=== PATIENT | female | born 1960 | race Caucasian/White ===

== ENCOUNTER → 2019-11-28 08:08 | Outpatient (CLI) | payer OTHER, SELFPAY ==
--- NOTE | 2019-11-28 08:19 | BD_ITS ---
STUDY: DUAL ENERGY X-RAY ABSORPTIOMETRY / DXA REASON FOR EXAM: Female, 58 years old. 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 COMPARISON: Comparison is made with prior study dated 07/14/2001. FINDINGS: Lumbar Spine (L1-L4): g/cm2 (1.019) / T-score (-1.3) / Z-score (-0.2) Findings are suggestive of osteopenia with a low fracture risk. Left Femur Total: g/cm2 (0.843) / T-score (-1.3) / Z-score (-0.4) Left Femoral Neck: g/cm2 (0.837) / T-score (-1.4) / Z-score (-0.2) Right Femur Total: g/cm2 (0.838) / T-score (-1.3) / Z-score (-0.4) Right Femoral Neck: g/cm2 (0.789) / T-score (-1.8) / Z-score (-0.6) The T-Scores on the most recent prior examination were: Lumbar Spine (L1-L4): There has been worsening of bone density since the previous examination. Left Femur Total: which represents an improvement of 5.9%. Right Femur Total: which represents a worsening of . BD/Dexa Bone Density Study IMPRESSION: The patient is considered osteopenic as outlined below according to World Loco Organization (WHO) criteria with a moderate fracture risk. There has been worsening of bone density since the previous examination. Reference Information: The T-score is the number of standard deviations above or below the standard which is normal for young adults at their peak bone mineral density. The World Health Organization (WHO) interprets the T-scores as follows: Above -1 Normal bone density Between -1 and -2.5 Osteopenia Equal to / or below -2.5 Osteoporosis As a practical clinical guideline, osteopenia may be graded as follows: Mild -1 through -1.5 Moderate -1.6 through -2.0 Severe -2.1 through -2.4 The Z-score is the number of standard deviations above or below age-matched controls. A Z-score of less than -1.5 would be considered abnormal. References: 1. NIH Osteoporosis and Related Bone Diseases http://www.osteo.org 2. International Society for Clinical Densitometry http://www.iscd.org 3. National Osteoporosis Foundation http://www.nof.org Electronically Signed: Moise Muir, at 9:33 EDT , Service support ,
== END ==
PROVIDERS: PCP Family Medicine; Referring Provider Family Medicine; Visit Provider Family Medicine
DX: M85.80 Other specified disorders of bone density and structure, unspecified site (principal); Z79.51 Long term (current) use of inhaled steroids
CPT/HCPCS: 77080

== ENCOUNTER 2020-06-27 15:51 | Outpatient (RCR) | payer OTHER, SELFPAY | END 2020-06-27 23:59 | LOC: IMMUN 15:51 | PROVIDERS: PCP Family Medicine; Referring Provider Family Medicine; Visit Provider Family Medicine | DX: Z23 Encounter for immunization (principal) | CPT/HCPCS: 0011A; 0012A ==

== ENCOUNTER 2024-03-31 08:00 | Day surgery (SDC) | payer OTHER, SELFPAY ==
[2024-01-21 07:12] LABS: Hematocrit 44.1 % (37-47); Hemoglobin 14.8 g/dL (12.0-15.0); Mean Corp Hgb Conc 33.6 g/dL (32-36); Mean Corpuscular Hgb 31.2 pg (27.0-32.0); Mean Corpuscular Volume 92.8 fL (81-99); Mean Platelet Vol. 8.2 fl (6.2-12.0); Platelet Count 262 K/mm3 (150-450); RBC Distribution Width CV 11.7 % (11.6-14.6); RBC Distribution Width SD 40.2 fl (35.1-43.9); Red Blood Count 4.75 M/mm3 (4.2-5.4); White Blood Count 5.4 K/mm3 (4.4-11.0)
== END 2024-03-31 17:11 | disposition home or self-care (01) ==
LOC: PAT 06-07 07:22
PROVIDERS: PCP Family Medicine; Referring Provider Obstetrics & Gynecology; Visit Provider Obstetrics & Gynecology
DX: N84.0 Polyp of corpus uteri (principal); J45.909 Unspecified asthma, uncomplicated; E78.5 Hyperlipidemia, unspecified; E03.9 Hypothyroidism, unspecified; Z79.899 Other long term (current) drug therapy; Z79.890 Hormone replacement therapy; D86.0 Sarcoidosis of lung; Z79.51 Long term (current) use of inhaled steroids; N85.01 Benign endometrial hyperplasia
CPT/HCPCS: 58558; 00952; 36415; 85027; 86850; 86900; 86901

== ENCOUNTER 2024-03-31 12:36 | Outpatient (CLI) | payer OTHER, SELFPAY ==
--- NOTE | 2024-03-31 09:35 | PCM.PRE.AN2 ---
ASA Classification* ASA Classification ASA Classification: 2 Assessment & Plan Anesthesia* Anesthesia Assessment Anesthesia Assessment: Discussed sedation and/or anesthesia options, risks, benefits, and alternatives with patient/parents/legal guardian/POA. Questions invited. The patient/parents/legal guardian/POA seems to understand and agrees to proceed with anesthesia plan. Reviewed the physical assessment, medical history, allergy history and patient home medications list prior to surgery/procedure/anesthetic and documented any changes. Performed airway and anesthesia risk assessments. Anesthesia Type Anesthesia Type: MAC Anesthesia Focused Assessment* Airway Assessment Mouth opens: >3 cm Mallampati Score: II Focused Labs Anesthesia Preop lab: CBC WBC 5.4 K/mm3 (4.4-11.0) 01/21/24 06:45 RBC 4.75 M/mm3 (4.2-5.4) 01/21/24 06:45 Hgb 14.8 g/dL (12.0-15.0) 01/21/24 06:45 Hct 44.1 % (37-47) 01/21/24 06:45 Plt Count 262 K/mm3 (150-450) 01/21/24 06:45 CHEMISTRY COAG Pre-Assessment Diagnosis/Proposed Procedure Planned Operative Procedure(s): Hysteroscopy,D&c, polypectomy, Symphion Anesthesia History Anesthesia History - research management associate: Anesthesia History - research management associate Hx Hospitalization No 03/21/24 08:25 Any Problems With Anesthesia No 03/21/24 08:25 Cholinesterase deficiency No 03/21/24 08:25 You/Your Family Experience No 03/21/24 08:25 fever (hyperthermia) with Relationship Recent Exposure to Contagious Disease Does patient have nerve No 03/21/24 08:25 stimulator Patient instructed to have device shut off --Does patient have Pacemaker or ICD? When Was Last Pacemaker Check QUESTION #4 FULL TEXT: You/Your Family Experience fever (hyperthermia) with Anesthesia Last Oral Intake Last Oral intake: Last Oral Intake NPO since Meds taken in AM with sips of water? Meds patient instructed to take am of surgery PONV PONV - research management associate: PONV - research management associate Female Yes 03/21/24 08:25 HX of Motion Sickness Yes 03/21/24 08:25 HX of N/V After Surgery No 03/21/24 08:25 Non-Smoker Yes 03/21/24 08:25 Duration of Surgery greater No 03/21/24 08:25 than 60 minutes Number of Risk Factors 3 03/21/24 08:25 PONV Score Moderate Risk 03/21/24 08:25 Height & Weight Height & Weight: Anesthesia: Height & Weight Height 5 ft 2.5 in 02/15/24 08:22 Respiratory Assessment Respiratory Assessment - research management associate: Respiratory Tract Infection Hx - research management associate Hx Respiratory Tract Infection No 03/21/24 08:25 STOP Sleep Apnea STOP Sleep Apnea - research management associate: STOP Sleep Apnea - research management associate Hx Hypertension No 03/21/24 08:25 Hx Sleep Apnea No 03/21/24 08:25 CPAP BIPAP Do you snore loudly (louder No 03/21/24 08:25 than talking or can be heard Do you often feel tired/ No 03/21/24 08:25 fatigued/ sleepy during daytime? Has anyone observed you stop No 03/21/24 08:25 breathing during sleep? STOP Results Negative 03/21/24 08:25 QUESTION #5 FULL TEXT : Do you snore loudly (louder than talking or can be heard through closed doors)? 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 Specify any problems Hx of Preganancy in last 3 No 03/21/24 08:25 Months Nurse Filling Out Transfusion VCHRISTIN 03/21/24 08:25 & Questions: Date: 03/21/24 03/21/24 08:25 Time: 08:25 03/21/24 08:25 Patient unable to answer at this time (ie. confused, unrespo /Reproduction History /Reproductive History - research management associate: /Reproductive Hx- research management associate Hx Now No 03/21/24 08:25 Gestational Age (in weeks): EDC: Hx Hx Para Hx Section SAB No 03/21/24 08:25 [facility] Medical History Right shoulder pain Wears contact lenses Wears glasses Cancer Thyroid disease Anemia (~1989) High cholesterol Non-smoker Asthma Home Medications ?Medication ?Instructions ?Recorded ?Last Taken ?Type budesonide 90 mcg/actuation breath 2 inh inhalation DAILY 01/18/24 Unknown History activated powder inhaler (Pulmicort Flexhaler) calcium 600 mg capsule 1,200 mg PO DAILY 01/18/24 Unknown History dupilumab 300 mg/2 mL subcutaneous 300 mg subcut .[id number] 01/18/24 Unknown History pen injector (Dupixent) levothyroxine 25 mcg tablet 25 mcg PO DAILY 01/18/24 Unknown History (Levoxyl) ferrous sulfate 325 mg (65 mg 650 mg PO BID 03/21/24 Unknown History iron) tablet (Feosol) Allergy/AdvReac Type Severity Reaction Status Date / Time Sulfa (Sulfonamide Allergy Rash Verified 03/21/24 08:20 Antibiotics) Surgical History History of hand surgery History of bronchoscopy (~2017) History of colonoscopy History of breast biopsy Social History Smoking Status: Never smoker Review of Systems (Anesthesia) ROS Narrative System reviewed and no additional complaints, except as documented.
[2024-03-31 09:43] VITALS: BP 128/84; PULSE 73; RESP 16; TEMP 36.9; O2SAT 100; BMI 18.5
[2024-03-31 09:58] LABS: Hematocrit 42.5 % (37-47); Hemoglobin 14.5 g/dL (12.0-15.0); Mean Corp Hgb Conc 34.1 g/dL (32-36); Mean Corpuscular Hgb 30.7 pg (27.0-32.0); Mean Platelet Vol. 8.2 fl (6.2-12.0); Platelet Count 236 K/mm3 (150-450); RBC Distribution Width CV 11.7 % (11.6-14.6); RBC Distribution Width SD 38.8 fl (35.1-43.9); Red Blood Count 4.72 M/mm3 (4.2-5.4); White Blood Count 6.5 K/mm3 (4.4-11.0)
[2024-03-31 10:36] LABS: Anion Gap 4 (5-15); BUN 17 mg/dL (7-18); BUN/Creat Ratio 25.2 RATIO (10-20); Calcium,Total 9.4 mg/dL (8.5-10.1); Chloride 101 mmol/L (98-107); Creatinine, Serum 0.68 mg/dL (0.55-1.02); EST Glomerular Filtration Rate 93 mL/min (>60); Est Glom Filt Rate - Afr Amer 113 mL/min (>60); Estimated Creatinine Clearance 60.69 ml/min; Glucose 88 mg/dL (74-106); Potassium 3.6 mmol/L (3.5-5.1); Sodium Level 136 mmol/L (136-145)
[2024-03-31] MEDS: Lidocaine 1% /Epi 1:100 (20ml) 20 ML Vial (12:04)
--- NOTE | 2024-03-31 12:10 | EMB_PTH ---
PATIENT: KIRBY OBRIEN LOC: [facility] U#:[id number] AGE/SX: 63/F ROOM: RE03/31/[address]: Dr. Heaven Kelly DO : 1960 BED: DIS: 03/31/2024 SPEC #: [id number] RECD: 03/31/24 14:06 STATUS: DAMIAN REJamshid #: [id number] FRANKIE: 03/31/24 12:[address]: Heaven Kelly DEPT: SURGICAL PATHOLOGY RECD BY: Candis Verduzco ENTERED: 04/03/24 07:01 SP TYPE: ENDOM BX/C OT DR: Dr. Kedar Cosme MD Tissues: Endometrium, NOS Procedures: Surgery Specimen Level IV HEADER OPERATION: Hysteroscopy, D&C, cervical pap smear PRE-OP DIAGNOSIS: Polyp TISSUE SUBMITTED: Endometrial curettings MICROSCOPIC DIAGNOSIS Endometrium, curettings: Rare benign epithelial cells present. AM.mr 04/04/2024 MICROSCOPIC DESCRIPTION Slides are reviewed. GROSS DESCRIPTION Received in fixative is one container labeled with the patient's name and designated Endometrial curettings. The specimen consists of light garcia mucoid material aggregating to 0.1 x <0.1 x <0.1cm. The specimen is submitted for cellblock preparation. AM 04/03/2024 TC:5 CPT:80025
--- NOTE | 2024-03-31 12:27 | PCM.DC ---
Discharge Instructions Diet Discharge Diet: No restrictions DC O2, CPAP, BIPAP needs Additional Home O2 Discharge instructions: No Dressing / Incision Discharge Activity: May Drive (once you are more than 24 hours out from surgery) and May Shower (once you are more than 24 hours out from surgery) May resume sexual activity in: 1 week (nothing in the vagina and no soaking in water for 1 week) Weight Bearing Status: Weight bearing as tolerated Lifting Restrictions: none Additional Activity Instructions:: You will notice vaginal and vulvar burning from the exam. Use a cool wash rag over the area to soothe the burning Wait 1 week and for pathology results before re starting the vaginal estrogen cream Use heat and Ibuprofen as needed for the cramping Dressing / Incision Call your doctor if you observe: Fever of 101 or Higher, Numbness or Tingling, Inability to urinate, Inability to have a bowel movement, Using more than 1 pad per hour, Shortness of breath, Dizziness, Swelling in the ankles, Chest pain, Increased palpitations (irregular heartbeat), Calf discomfort and Uncontrolled pain Cleanse incision/area with: Soap & Water Follow Up Care Please Follow Up With: Heaven Kelly DO When: 1-2 weeks for follow up Test Results: Test results from this visit will be discussed in further detail at your follow-up appointment, if applicable. Discharge Plan Admission Primary Reason for Your Visit: surgery Attending Provider: Heaven Kelly Primary Care Provider: Kedar Cosme Instructions Patient Instructions: Dilation and Curettage Print Language: Romansh Discharge Orders/Prescriptions Prescriptions: Continued Pulmicort Flexhaler 90 mcg/actuation aerosol powdr breath activated 2 inh inhalation DAILY Dupixent Pen 300 mg/2 mL pen injector 300 mg subcut .[id number] levothyroxine [Levoxyl] 25 mcg tablet 25 mcg PO DAILY calcium 600 mg capsule 1,200 mg PO DAILY ferrous sulfate [Feosol] 325 mg (65 mg iron) tablet 650 mg PO BID Referrals / Follow Up: Kedar Cosme MD [Primary Care Provider] - Disposition Disposition (needs filled in before D/C Order can be placed): Home, Self Care
--- NOTE | 2024-03-31 12:30 | PCM.OPRPT ---
Problems Associated Problem List Diagnoses (1) Endometrial polyp: Operative Report (Standard) Operative Information Surgery/Procedure Performed: EUA, cervical pap smear, hysteroscopy, D&C Surgeon: Heaven Kelly Date of Procedure: 03/31/24 Procedure Start Time: 11:55 Procedure Stop Time: 12:25 Pre-Operative Diagnosis: Endometrial polyp on pelvic ultrasound Post-Operative Diagnosis: Cervical pap smear screening Atrophy Select all DRAINS/GRAFTS/IMPLANTS that apply: None Type of Anesthesia: Local and MAC Estimated Blood Loss: < 20 cc Fluids Replaced: 200 cc deficit Specimen collected: Yes Description of specimen(s) removed: Endometrial curettings Description of surgery: The patient was taken to the OR where MAC anesthesia was induced. She was prepped and draped in the dorsal lithotomy position using yellow fin stirrups. Vulvar exam showed atrophy and no lesions. A pediatric speculum was inserted to expose the cervix. Cervical and vaginal atrophy were noted. A cervical pap smear was obtained. A single tooth tenaculum was placed on the anterior lip of the cervix. 10 cc of local was infiltrated circumferentially within the cervix. The cervix was serially dilated to accommodate the hysteroscope. The hysteroscope was inserted into the uterus, and the uterus was distended with normal saline. Bilateral tubal ostia were visualized. The uterine cavity was normal appearing and without lesions. The endometrium was atrophic appearing. There were no polyps. The hysteroscope was slowly removed from the uterus noting a normal appearing endocervical canal without polyps or lesions. A sharp curettage was performed for scant tissue. Endometrial curettings were sent to pathology for review. Bleeding was scant to none. All instruments were removed from the vagina. The vaginal tissue was examined and no lacerations were noted. Bleeding remained scant to none. The patient was taken to the recovery room in stable condition. Instrument and sponge counts were correct. A vaginal sweep was performed. Surgical Findings: Normal appearing uterine cavity without polyps or lesions Atrophic endometrium, cervix, vagina and vulva Remedial Reading Teacher field agronomist: No Complications Complications: No Admit VTE Documentation VTE Present on Admission: No VTE Mechan Device Prophylaxis: SCD's
[2024-03-31 12:32] VITALS: BP 108/66; PULSE 71; RESP 18; TEMP 36.3; O2SAT 96
--- NOTE | 2024-03-31 12:32 | PCM.POST.ANE ---
Anesthesia: Postop Eval I Current Vital Signs Temperature: 97.4 F Pulse Rate: 71 Blood Pressure: 108/66 Respiratory Rate: 18 Pulse Ox: 96 Assessment Airway patent: Yes Spontaneous unlabored respirations: Yes nausea: No Vomiting: No Anesthesia Complication: No Fluid Hydration Crystalloid volume administer (ml): 10 Total IV fluid infused: 10 Progress Note Anesthesia document: Postop Eval 1 completed: Yes
[2024-03-31 12:35] VITALS: BP 128/84; PULSE 68; RESP 16; TEMP 36.3; O2SAT 97
[2024-03-31 12:40] VITALS: BP 104/71; BP 128/84; PULSE 74; RESP 16; O2SAT 99
[2024-03-31 12:45] VITALS: BP 112/68; BP 128/84; PULSE 66; RESP 16; TEMP 36.5; O2SAT 97
[2024-03-31 13:01] VITALS: BP 128/84
--- NOTE | 2024-03-31 13:32 | POSTOPAN2_ITS ---
Anesthesia Postop Eval I Sum Postop Eval Completion status Anesthesia document: Postop Eval 1 completed: Yes Anesthesia Postop Eval I Summary Anesthesia Postop Eval I Summary: Anesthesia Postop Eval I: Assessment Summary Airway patent Yes 03/31/24 12:32 STAFF DEVELOPMENT EDUCATOR.CSIR Spontaneous unlabored Yes 03/31/24 12:32 STAFF DEVELOPMENT EDUCATOR.CSIR respirations Mental status nausea No 03/31/24 12:32 STAFF DEVELOPMENT EDUCATOR.CSIR Vomiting No 03/31/24 12:32 STAFF DEVELOPMENT EDUCATOR.CSIR Anesthesia Postop Eval I: Fluid Summary Crystalloid volume administer 10 03/31/24 12:32 STAFF DEVELOPMENT EDUCATOR.CSIR (ml) Colloids volume administered ( ml) Blood Product volume administered (ml) Total IV fluid infused 10 03/31/24 12:32 STAFF DEVELOPMENT EDUCATOR.CSIR Anesthesia Postop Eval I: Summary Notes Anesthesia Complication No 03/31/24 12:32 STAFF DEVELOPMENT EDUCATOR.CSIR Anesthesia Complication Comment: Post-operative progress note Anesthesia: Postop Eval II Evaluation Mental status: Awake Pain Level: 0 nausea: No Vomiting: No
--- NOTE | 2024-03-31 13:32 | PCM.POSTANE2 ---
Anesthesia Postop Eval I Sum Postop Eval Completion status Anesthesia document: Postop Eval 1 completed: Yes Anesthesia Postop Eval I Summary Anesthesia Postop Eval I Summary: Anesthesia Postop Eval I: Assessment Summary Airway patent Yes 03/31/24 12:32 SENIOR COURTROOM CLERK.CSIR Spontaneous unlabored Yes 03/31/24 12:32 SENIOR COURTROOM CLERK.CSIR respirations Mental status nausea No 03/31/24 12:32 SENIOR COURTROOM CLERK.CSIR Vomiting No 03/31/24 12:32 SENIOR COURTROOM CLERK.CSIR Anesthesia Postop Eval I: Fluid Summary Crystalloid volume administer 10 03/31/24 12:32 SENIOR COURTROOM CLERK.CSIR (ml) Colloids volume administered ( ml) Blood Product volume administered (ml) Total IV fluid infused 10 03/31/24 12:32 SENIOR COURTROOM CLERK.CSIR Anesthesia Postop Eval I: Summary Notes Anesthesia Complication No 03/31/24 12:32 SENIOR COURTROOM CLERK.CSIR Anesthesia Complication Comment: Post-operative progress note Anesthesia: Postop Eval II Evaluation Mental status: Awake Pain Level: 0 nausea: No Vomiting: No
[2024-04-07 12:09] LABS: HPV APTIMA, High Risk Negative (Negative)
== END 2024-03-31 13:08 | disposition home or self-care (01) ==
LOC: SDC 12:36 → AC 12:36
PROVIDERS: PCP Family Medicine; Referring Provider Obstetrics & Gynecology; Visit Provider Obstetrics & Gynecology
PROC: 0UB98ZZ Excision of Uterus, Via Natural or Artificial Opening Endoscopic (ICD-10-PCS; CPT 58558; principal; 2024-03-31 11:55)
DX: N85.01 Benign endometrial hyperplasia (principal); E03.9 Hypothyroidism, unspecified; J45.909 Unspecified asthma, uncomplicated; Z79.51 Long term (current) use of inhaled steroids; Z79.890 Hormone replacement therapy
CPT/HCPCS: 58558; 00952; 80048; 85027; 86850; 86900; 86901; 87624; 88175; 88305; A4216; G0145; J2405

== ENCOUNTER 2024-04-14 08:00 | Outpatient (RCR) | payer OTHER, SELFPAY ==
--- NOTE | 2024-02-22 07:53 | HP.PTEVAL_ITS ---
Patient's Visit Information Visit Information Visit Information: KIRBY OBRIEN is a 63 year old F referred to Physical Therapy by Dr. Elan Briones MD with a diagnosis of R shoulder pain. Date of Evaluation: 02/22/24 Physical Therapist: HARRISON Rand Visit Plan Frequency: 1x/Week Duration: 4 Weeks Plan: 1X/ week for 4 weeks for HEP for scapular strength, postural exercises, RC strength with HEP HEP: green band mid rows, orange double ER, Corner stretch, and thoracic extension stretch with B arms behind head and squeeze shoulder blades together Subjective Subjective: Pt reports that R shoulder feels like it kinks and 86% of time she does not know its there. It will occ wake her up at night. Nothing in particular will bother it consistently. Sometimes is hurts putting her coat on or reaching behind her to grab her seatbelt or putting something on the other side of the car seat. She swims a lot and a lot of times she will not feel it and it will get better the more she goes. Her shoulder x-ray showed no X-ray. No N&T and no weakness, just some when she gets the pain. She is R handed. She can sleep on her R shoulder. She has no neck pain currently but she has had some neck pain in the past and it will go down to the elbow Pain R shoulder pain: Pain Intensity (Out of 10): 1 Objective Objective: R handed R 40# and L 50# C-spine AROM: FW head posture. Flexion 100%, Ext 50%, Rot R 80 and Rot L 75%, SB B 25% UE MMT: R shoulder flex 10.3 and L 11.3 R shoulder ABD 6.3 and L 6.9 R shoulder ER 9 and L 12 R shoulder IR 10.2 and L 11 Posture: rounded shoulders and increase thoracic kyphosis and fw head Palpation: tight traps and levaror B Balance/Special Test Scores Quick DASH Score: 9.0900 Goals Goal 1:: I HEP Goal Time Frame: 6-8 Weeks Goal 2:: Sit with more upright posture during the day and during treatment Goal Time Frame: 6-8 Weeks Goal 3:: Decrease freq of R shoulder pain by 50% Goal Time Frame: 6-8 Weeks Goal 4:: Increase R shoulder strength (at the time of the eval: R shoulder flex 10.3 and L 11.3 R shoulder ABD 6.3 and L 6.9 R shoulder ER 9 and L 12 R shoulder IR 10.2 and L 11) Goal Time Frame: 6-8 Weeks Rehabilitation Potential Rehabilitation Potential: Good Anticipated Interventions Patient/Client Instruction: Educate patient on: Condition and Plan of Care For the Purpose of:: To decrease pain, To increase ROM, To improve nutrient delivery to tissue, To improve muscle performance and motor function, To improve ability to perform ADL's, To increase tolerance to activity/condition/position, To improve performance and independence with ADL's, To decrease level of perez pervision to perform tasks, To improve ability of physical actions for home/community/work/leisure, To improve health of tissue, To decrease soft tissue restriction and To increase flexibility/ROM Therapeutic Exercise to Include: Strength training, Body mechanics, Postural training, Flexibilty training, Passive ROM, Active ROM and Scapular Strength/Stabilization For the Purpose of:: To decrease pain, To increase ROM, To improve nutrient delivery to tissue, To increase oxygenation perfusion, To improve muscle performance and motor function, To improve ability to perform ADL's, To increase tolerance to activity/condition/position, To improve performance and independence with ADL's, To decrease level of supervision to perform tasks, To improve ability of physical actions for home/community/work/leisure, To improve health of tissue, To decrease soft tissue restriction and To increase flexibility/ROM Manual Therapy Techniques to Include: Passive ROM and Soft tissue mobilization For the Purpose of:: To decrease pain, To improve nutrient delivery to tissue, To improve muscle performance and motor function, To improve ability to perform ADL's, To increase tolerance to activity/condition/position, To improve performance and independence with ADL's, To improve health of tissue, To decrease soft tissue restriction and To increase flexibility/ROM Text: Thank you for the opportunity to evaluate your patient. For Medicare and Medicare HMO plans, please review the plan of care and approve it. It will need to be FAXED BACK to us at [phone] for Medicare purposes. For Medicare only, by signing this I certify the plan of care. Please let me know if there are questions or concerns regarding this plan of care. Physician Signature: Date:
--- NOTE | 2024-04-03 08:27 | HP.PTREVAL ---
Re-Evaluation Intro: Dr. Elan Briones MD, It has been my pleasure to treat KIRBY OBRIEN over the last 6 visits for R shoulder pain. Please see the progress note below for an update on the physical therapy plan of care! Subjective Subjective: She feels she is getting stronger with the prone T's. So no flares since last Wednesday. US seems to be helping. She is trying to watch her posture Objective Objective/Function: R shoulder flex 10.8 and L 0.9 R shoulder ABD 13.9 and L 11.9 R shoulder ER 12.6 and L 12 R shoulder IR 12.8 and L 11.1 Plan Plan Plan: Pt to schedule in 2 weeks or call and cancel if she is doing better Balance/Gait/Functional tests Balance/Special Test Scores Quick DASH Score: 11.3625 Goals Goals Goal 1:: I HEP Goal Time Frame: 6-8 Weeks Goal Progress: Goal Met Goal 2:: Sit with more upright posture during the day and during treatment Goal Time Frame: 6-8 Weeks Goal Progress: Goal Met Goal 3:: Decrease freq of R shoulder pain by 50% Goal Time Frame: 6-8 Weeks Goal Progress: Goal Met Goal 4:: Increase R shoulder strength (at the time of the eval: R shoulder flex 10.3 and L 11.3 R shoulder ABD 6.3 and L 6.9 R shoulder ER 9 and L 12 R shoulder IR 10.2 and L 11) Goal Time Frame: 6-8 Weeks Goal Progress: Goal Met Anticipated Interventions Anticipated Interventions Patient/Client Instruction: Educate patient on: Condition and Plan of Care For the Purpose of:: To decrease pain, To increase ROM, To improve nutrient delivery to tissue, To improve muscle performance and motor function, To improve ability to perform ADL's, To increase tolerance to activity/condition/position, To improve performance and independence with ADL's, To decrease level of supervision to perform tasks, To improve ability of physical actions for home/community/work/leisure, To improve health of tissue, To decrease soft tissue restriction and To increase flexibility/ROM Therapeutic Exercise to Include: Strength training, Body mechanics, Postural training, Flexibilty training, Passive ROM, Active ROM and Scapular Strength/Stabilization For the Purpose of:: To decrease pain, To increase ROM, To improve nutrient delivery to tissue, To increase oxygenation perfusion, To improve muscle performance and motor function, To improve ability to perform ADL's, To increase tolerance to activity/condition/position, To improve performance and independence with ADL's, To decrease level of supervision to perform tasks, To improve ability of physical actions for home/community/work/leisure, To improve health of tissue, To decrease soft tissue restriction and To increase flexibility/ROM Manual Therapy Techniques to Include: Passive ROM and Soft tissue mobilization For the Purpose of:: To decrease pain, To improve nutrient delivery to tissue, To improve muscle performance and motor function, To improve ability to perform ADL's, To increase tolerance to activity/condition/position, To improve performance and independence with ADL's, To improve health of tissue, To decrease soft tissue restriction and To increase flexibility/ROM Re-Evaluation Ending Re-evaluation ending: Please do not hesitate to contact me at [phone] by phone or if you have questions or concerns regarding this new plan of care! Sincerely, Margarita Esquivel MPT
--- NOTE | 2024-04-14 08:32 | HP.PTDCSUM ---
Discharge Summary D/C summary: It has been my pleasure to treat KIRBY OBRIEN referred by Dr. Elan Briones MD, with the diagnosis of R shoulder pain for a total of 7 visit(s). Discharge Date: Please see the following information for a summary of their discharge status. Subjective Subjective: Pt reports that she still has pain when she pulls up her covers. Laying on it still bothers it and it is stiff in the mornings. She has had a cortisone shot in her elbow before and it had really helped. She wants to make a follow up with Dr Briones Pain R shoulder pain: Pain Intensity (Out of 10): 0 Overall Improvement % Improvement: 80 Objective Objective/Function: The US did bother her today on the tip of the anterior shoulder when the wand would roll over it. Goals Goal 1:: I HEP Goal Progress: Goal Met Goal 2:: Sit with more upright posture during the day and during treatment Goal Progress: Goal Met Goal 3:: Decrease freq of R shoulder pain by 50% Goal Progress: Goal Met Goal 4:: Increase R shoulder strength (at the time of the eval: R shoulder flex 10.3 and L 11.3 R shoulder ABD 6.3 and L 6.9 R shoulder ER 9 and L 12 R shoulder IR 10.2 and L 11) Goal Progress: Goal Met Plan Plan: DC PT back to . Pt is routinely doin her HEP and has charts to show that it was completed. D/C Information d/c sentence: If there are questions or concerns regarding this patient's physical therapy, please feel free to call me at [phone]. Thank you for the referral of this patient. Sincerely, Margarita Esquivel, MPT Balance/Gait/Functional tests Balance/Special Test Scores Quick DASH Score: 13.6350 Improvement % Improvement: 80
== END 2024-04-14 10:21 | disposition home or self-care (01) ==
LOC: PT 08:00
PROVIDERS: PCP Family Medicine; Referring Provider Orthopaedic Surgery Sports Medicine; Visit Provider Orthopaedic Surgery Sports Medicine
DX: M25.511 Pain in right shoulder (principal)
CPT/HCPCS: 97035; 97110; 97161; 97530

== ENCOUNTER → 2024-04-24 | Outpatient (CLI) | payer OTHER, SELFPAY ==
--- NOTE | 2024-04-24 10:29 | MRI_ITS ---
EXAM: MR RIGHT UPPER EXTREMITY WITHOUT INTRAVENOUS CONTRAST, SHOULDER CLINICAL INDICATION: pain, rule out cuff tear TECHNIQUE: Multiplanar and multisequence MR images of the right shoulder without intravenous contrast. COMPARISON: February 15, 2024 FINDINGS: TENDONS: SUPRASPINATUS: Unremarkable. Intact. INFRASPINATUS: Unremarkable. Intact. SUBSCAPULARIS: Unremarkable. Intact. TERES MINOR: Unremarkable. Intact. Is is is BICEPS BRACHII, LONG HEAD: Unremarkable. The extra-articular biceps tendon is in the bicipital groove. The intra-articular biceps tendon is normal. LIGAMENTS: GLENOHUMERAL: Unremarkable. Intact. MUSCLES: Muscles are normal. T. No rotator cuff muscle atrophy. FLUID: Large amount of fluid in the subacromial/subdeltoid bursa. This is compatible with bursitis. No joint effusion. CARTILAGE: Unremarkable. Articular cartilage intact. GLENOID LABRUM: Unremarkable. Intact, limited evaluation on non-arthrographic exam. BONES/JOINTS: Mild to moderate degenerative changes of the acromioclavicular joint with mild mass effect on the underlying soft tissues. Small amount of glenohumeral joint fluid at the axillary pouch. ype II acromion with curved undersurface. Mild heterogeneous marrow is edema involving the anterior/lateral aspect of the humeral head. No fracture identified. No evidence for osteonecrosis. No subacromial enthesophyte or os acromiale. MRI/Upper Ext Joint Only(Routine) IMPRESSION: 1. Subacromial/subdeltoid bursitis. 2. No rotator cuff or labral tear. Electronically Signed: David Bowling MD at 0:22 EST ,
== END | disposition home or self-care (01) ==
PROVIDERS: PCP Family Medicine; Referring Provider Orthopaedic Surgery Sports Medicine; Visit Provider Orthopaedic Surgery Sports Medicine
DX: M25.511 Pain in right shoulder (principal)
CPT/HCPCS: 73221

== ENCOUNTER 2024-09-26 07:00 | Outpatient (RCR) | payer OTHER, SELFPAY ==
--- NOTE | 2024-09-18 21:04 | HP.PTEVAL_ITS ---
Patient's Visit Information Visit Information Visit Information: KIRBY OBRIEN is a 63 year old F referred to Physical Therapy by Dr. 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 Date of Evaluation: 09/18/24 Physical Therapist: Kika Forrester, PT, Cert MDT Visit Plan Frequency: 1-2x /Week Duration: 3-5 VISITS Plan: PT 1-2 TIMES A WK X 3 TO 5 VISITS FOR L KNEE VMO STRENGTHENING PROGRAM (SHORT ARC). L KNEE US AND CP NEEDED TO DECREASE PAIN AND INFLAMMATION. L HIP, KNEE AND ANKLE ROM/STRETCHING. STAIR TRAINING. Subjective Subjective: OCCUPATION: [employer] THIS PATIENT PRESENTS TO PT WITH C/O MILD L KNEE WEAKNESS, PAIN AND STIFFNESS RATED 0-1/10 THAT HE WOKE UP WITH 09/03/24 FOR NO APPARENT REASON. HE DENIES LLE NUMBNESS, TINGLING AND SWELLING. 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 CURRENTLY HE HAS INCREASED PAIN GOING UP STEPS AND MARILIN IS HELPING. HE DID NOT HAVE A CORTISONE SHOT BUT DR. POWER APPARENTLY TOLD HIM HE COULD GIVE HIM ONE IF NEEDED. HE IS INTERESTED IN A HOME EX PROGRAM. PMH: Bursitis of right shoulder Impingement of right shoulder Right shoulder pain Wears contact lenses Wears glasses Cancer Thyroid disease Anemia ~1989 High cholesterol Non-smoker Asthma History of hand surgery History of bronchoscopy ~2017 History of colonoscopy History of breast biopsy Objective Objective: THIS PATIENT AMBULATES INDEP'LY INTO PT WITH NO GROSS DEVIATIONS NOTED. INDEP TRANSFERS. NO SIGNIFICANT EDEMA. NEURO INTACT. ROM: L: 0-0-136 DEG FLEXION WITH HEEL SLIDE IN LYING. ERP FLEX. R: 0-0-147 DEG FLEXION WITH HEEL SLIDE IN LYING. STRENGTH: MAIDA LE'S 5/5 WITH MMT'ING. PATIENT DENIES PAIN WITH MMT'ING. TREATMENT: DX EDUCATION AND HEP INSTRUCTION: HIP ADD BALL WALL SQUAT AND OTB STANDING TERMIAL KNEE EXT - WRITTEN HEP INSTRUCTIONS PROVIDED TO PATIENT. Balance/Special Test Scores Lower Extremity Functional Score: 62 Goals Goal 1:: PATIENT WILL BE INDEP WITH L KNEE VMO STRENGTHENING HEP Goal Time Frame: 3 TO 5 VISITS Goal 2:: PATIENT WILL HAVE L KNEE ROM = TO R KNEE Goal Time Frame: 3 TO 5 VISITS Goal 3:: PATIENT WILL BE ABLE TO GO UP STEPS WITHOUT C/O PAIN Goal Time Frame: 2-4 Weeks Rehabilitation Potential Physical Therapy Diagnosis: L KNEE PAIN AND STIFFNESS. Rehabilitation Potential: Excellent Anticipated Interventions Patient/Client Instruction: Educate patient on: Condition For the Purpose of:: To improve self management Therapeutic Exercise to Include: Strength training and Flexibilty training For the Purpose of:: To decrease pain, To increase ROM, To improve muscle performance and motor function, To increase tolerance to activity/condition/position, To improve ability of physical actions for home/community/work/leisure, To decrease soft tissue restriction and To increase flexibility/ROM Cryotherapy (ice pack, ice massage): Yes Ultrasound (thermal/non thermal): Yes For the Purpose of:: To decrease pain, To decrease swelling/inflammation and To improve nutrient delivery to tissue Text: Thank you for the opportunity to evaluate your patient. For Medicare and Medicare HMO plans, please review the plan of care and approve it. It will need to be FAXED BACK to us at [phone] for Medicare purposes. For Medicare only, by signing this I certify the plan of care. Please let me know if there are questions or concerns regarding this plan of care. Physician Signature: Date:
== END 2024-09-26 19:00 | disposition home or self-care (01) ==
LOC: PT 07:00
PROVIDERS: PCP Family Medicine; Referring Provider Orthopaedic Surgery; Visit Provider Orthopaedic Surgery
DX: M17.12 Unilateral primary osteoarthritis, left knee (principal)
CPT/HCPCS: 97110; 97161; 97530